=== PATIENT | female | born 1970 | race Caucasian/White ===

== ENCOUNTER 2025-05-10 06:55 | Outpatient (CLI) | payer BC ==
[2025-05-10 07:21] LABS: Hematocrit 40.8 % (36.0-46.0); Hemoglobin 14.2 g/dL (12.2-16.2); Mean Corpuscular Hemoglobin 31.3 pg (28.0-32.0); Mean Corpuscular Volume 90.0 fL (80.0-100.0); Nucleated Red Blood Cells % 0.1 %
[2025-05-10 08:08] LABS: Alanine Aminotransferase 28 U/L (7-40); Alkaline Phosphatase 88 U/L (46-116); Anion Gap 8 (5-15); BUN/Creatinine Ratio 13.1 (10.0-20.0); Blood Urea Nitrogen 11 mg/dL (9-23); Calcium 9.6 mg/dL (8.7-10.4); Carbon Dioxide 30 mmol/L (20-31); Chloride 105 mmol/L (98-107); Glucose 94 mg/dL (74-106); Potassium 4.0 mmol/L (3.5-5.1); Sodium 143 mmol/L (136-145); Total Protein 6.7 g/dL (5.7-8.2)
[2025-05-10 08:09] LABS: Albumin 4.5 g/dL (3.2-4.8)
[2025-05-10 08:10] LABS: Bilirubin, Total 0.6 mg/dL (0.2-1.0); Cholesterol 195 mg/dL (< 200)
[2025-05-10 08:15] LABS: HDL Cholesterol 79 mg/dL (40-59); Triglycerides 174 mg/dL (< 150)
[2025-05-10 09:08] LABS: Follicle Stimulating Hormone 95.96 IU/L (SEE BELOW)
== END 2025-05-10 17:00 | disposition home or self-care (01) ==
LOC: LAB 06:55
PROVIDERS: ATTEND Internal Medicine
DX: N95.1 Menopausal and female climacteric states (principal); E78.00 Pure hypercholesterolemia, unspecified; R68.89 Other general symptoms and signs; E03.9 Hypothyroidism, unspecified; Z12.11 Encounter for screening for malignant neoplasm of colon
CPT/HCPCS: 36415; 80053; 80061; 82670; 83001; 83002; 84144; 84436; 84443; 85025